=== PATIENT | female | born 1945 | race Caucasian/White ===

== ENCOUNTER 2019-01-12 16:20 | Inpatient (IN) ==
[2019-01-12] MEDS ORDERED: PANTOPRAZOLE 40 MG VIAL IV STA (17:12)
[2019-01-12] MEDS ORDERED: ONDANSETRON 4 MG/2 ML VIAL IV STA (17:12)
[2019-01-12] MEDS ORDERED: METOCLOPRAMIDE 10 MG/2 ML VIAL IV STA (17:12)
[2019-01-12 17:36] LABS: Basophils % 0.5 % (0.0-0.8); Eosinophils # 0.2 10*3/uL (0.0-0.87); Eosinophils % 2.2 % (0.00-10.9); Hematocrit 45.9 VOL% (35.7-47.0); Hemoglobin 14.7 GM/DL (12.0-16.0); Immature Granulocytes % 0.4 %; Immature Granulocytes Absolute 0.03 #; Lymphocytes # 1.9 10*3/uL (1.4-4.0); Lymphocytes % 23.2 % (21.3-54.2); Mean Corpuscular Hemoglobin 31 PG (27-34); Mean Corpuscular Volume 95.2 FL (87-102); Mean Platelet Volume 11.3 FL (9.6-12.0); Monocytes # 0.6 10*3/uL (0.11-0.8); Monocytes % 6.8 % (1.7-12.7); Neutrophils # 5.6 10*3/uL (1.4-7.4); Neutrophils % 66.9 % (38.7-73.9); Platelet Count 186 T/CUMM (130-400); Red Blood Count 4.82 MC/CUMM (3.8-5.5); Red Cell Distribution Width 13.9 % (9.3-17.3); White Blood Count 8.4 T/CUMM (4-12)
[2019-01-12 17:53] LABS: INR 1.1; PT Patient Result 11.7 SECS; Partial Thromboplastin Time 26.7 SECS (0-40)
[2019-01-12 18:03] LABS: Alanine Aminotransferase 41 U/L (13-56); Albumin 3.7 G/DL (3.4-5.0); Alkaline Phosphatase 122 U/L (45-117); Aspartate Amino Transferase 35 U/L (0-37); Blood Urea Nitrogen 14 MG/DL (7-18); Glucose 110 MG/DL (74-106); Osmolality,Calculated 278.5 MOS/KG (273-304); Potassium 3.7 MMOL/L (3.5-5.1); Sodium 139 MMOL/L (136-145); Total Protein 7.5 G/DL (6.4-8.3); Troponin I < 0.015 NG/ML (0.00-0.045)
[2019-01-12] MEDS ORDERED: FUROSEMIDE 40 MG/4 ML VIAL IV STA (18:29)
[2019-01-12] MEDS ORDERED: ALBUTEROL/IPRATROPIUM 3 ML NEB RESP TX STA (18:29)
[2019-01-12 18:46] LABS: Apearance,Urine Slightly Hazy (Clear); Bilirubin,Urine Negative (Negative); Blood, Urine Small mg/dL (Negative); Glucose,Urine (UA) Negative (Negative); Hyaline Casts,Urine 3 /LPF (0-3); Ketones,Urine Negative (Negative); Mucus,Urine Occasional /LPF (Occasional); Nitrite,Urine Negative (Negative); Protein,Urine 30 MG/DL; RBC,Urine 3 /HPF (0-4); Squamous Epithelial Cell,Urine Occasional /HPF (0-10); Urine Color Yellow (Yellow); Urine Specific Gravity 1.017 (1.001-1.035); WBC,Urine 6 /HPF (0-6)
[2019-01-12] MEDS ORDERED: DOCUSATE SODIUM 100 MG CAPSULE PO PRN (19:22)
[2019-01-12] MEDS ORDERED: NITROGLYCERIN SL 0.4 MG TABLET SL PRN (20:33)
[2019-01-12] MEDS: CARVEDILOL 3.125 MG TABLET PO SCH (23:14)
[2019-01-12] MEDS: POTASSIUM CHLORIDE 20 MEQ TABLET PO SCH (23:14)
[2019-01-12] MEDS: APIXABAN 5 MG TABLET PO SCH (23:15)
[2019-01-12] MEDS: cefTRIAXone 2,000 MG in SYRINGE 1 EACH IV SCH (23:15)
[2019-01-12] MEDS: SOTALOL 80 MG TABLET PO SCH (23:15)
[2019-01-12 23:18] LABS: Troponin I < 0.015 NG/ML (0.00-0.045)
[2019-01-12] MEDS: DIGOXIN 0.125 MG TABLET PO SCH (23:24)
[2019-01-13 02:54] LABS: Basophils % 0.6 % (0.0-0.8); Eosinophils # 0.2 10*3/uL (0.0-0.87); Eosinophils % 2.6 % (0.00-10.9); Hemoglobin 12.7 GM/DL (12.0-16.0); Immature Granulocytes % 0.3 %; Immature Granulocytes Absolute 0.02 #; Lymphocytes % 27.9 % (21.3-54.2); Mean Corpuscular HGB Conc 32.6 GM/DL (32-36); Mean Corpuscular Hemoglobin 31 PG (27-34); Mean Platelet Volume 10.9 FL (9.6-12.0); Monocytes # 0.6 10*3/uL (0.11-0.8); Monocytes % 8.5 % (1.7-12.7); Neutrophils # 4.2 10*3/uL (1.4-7.4); Neutrophils % 60.1 % (38.7-73.9); Platelet Count 156 T/CUMM (130-400); Red Blood Count 4.15 MC/CUMM (3.8-5.5); Red Cell Distribution Width 13.8 % (9.3-17.3)
[2019-01-13 03:20] LABS: Troponin I 0.018 NG/ML (0.00-0.045)
[2019-01-13 04:01] LABS: Thyroid Stimulating Hormone 4.46 uIU/ml (0.358-3.74)
[2019-01-13] MEDS ORDERED: FUROSEMIDE 40 MG/4 ML VIAL IV ONE (05:23)
[2019-01-13] MEDS ORDERED: ALBUTEROL/IPRATROPIUM 3 ML NEB RESP TX ONE (05:23)
[2019-01-13] MEDS ORDERED: ALBUTEROL 2.5 MG/3 ML NEB RESP TX ONE (05:24)
[2019-01-13] MEDS: DOXYCYCLINE HYCLATE 100 MG CAPSULE PO SCH ×2 (08:56→21:52)
[2019-01-13] MEDS: SOTALOL 80 MG TABLET PO SCH ×2 (08:56→21:53)
[2019-01-13] MEDS: LOSARTAN 25 MG TABLET PO SCH (08:57)
[2019-01-13] MEDS: CARVEDILOL 3.125 MG TABLET PO SCH ×2 (08:57→21:53)
[2019-01-13] MEDS: SPIRONOLACTONE 25 MG TABLET PO SCH (08:57)
[2019-01-13] MEDS: ASPIRIN EC 81 MG TABLET PO SCH (08:57)
[2019-01-13] MEDS: APIXABAN 5 MG TABLET PO SCH ×2 (08:57→21:53)
[2019-01-13] MEDS: FUROSEMIDE 40 MG/4 ML VIAL IV SCH (08:57)
[2019-01-13] MEDS: POTASSIUM CHLORIDE 20 MEQ TABLET PO SCH ×2 (08:57→21:52)
[2019-01-13] MEDS: FLUTICASONE 50 MCG NASAL SPRAY 16 GM BOTTLE BOTH NARES SCH (09:06)
[2019-01-13] MEDS: cefTRIAXone 2,000 MG in SYRINGE 1 EACH IV SCH (23:42)
[2019-01-14 04:29] LABS: Basophils % 0.3 % (0.0-0.8); Eosinophils # 0.4 10*3/uL (0.0-0.87); Eosinophils % 5.4 % (0.00-10.9); Hematocrit 40.3 VOL% (35.7-47.0); Hemoglobin 13.1 GM/DL (12.0-16.0); Immature Granulocytes % 0.3 %; Immature Granulocytes Absolute 0.02 #; Lymphocytes # 2.4 10*3/uL (1.4-4.0); Lymphocytes % 35.9 % (21.3-54.2); Mean Corpuscular HGB Conc 32.5 GM/DL (32-36); Mean Corpuscular Hemoglobin 31 PG (27-34); Mean Corpuscular Volume 94.8 FL (87-102); Mean Platelet Volume 11.9 FL (9.6-12.0); Monocytes # 0.7 10*3/uL (0.11-0.8); Monocytes % 9.7 % (1.7-12.7); Neutrophils # 3.3 10*3/uL (1.4-7.4); Neutrophils % 48.4 % (38.7-73.9); Platelet Count 164 T/CUMM (130-400); Red Blood Count 4.25 MC/CUMM (3.8-5.5); Red Cell Distribution Width 13.7 % (9.3-17.3); White Blood Count 6.7 T/CUMM (4-12)
[2019-01-14 05:09] LABS: Calcium 9.5 MG/DL (8.5-10.1); Osmolality,Calculated 273.8 MOS/KG (273-304); Potassium 3.9 MMOL/L (3.5-5.1)
[2019-01-14 05:18] LABS: Free T4 (Free Thyroxine) 1.5 NG/DL (0.76-1.46); Thyroid Stimulating Hormone 1.82 uIU/ml (0.358-3.74)
[2019-01-14] MEDS: APIXABAN 5 MG TABLET PO SCH ×2 (09:04→20:41)
[2019-01-14] MEDS: DOXYCYCLINE HYCLATE 100 MG CAPSULE PO SCH ×2 (09:04→20:41)
[2019-01-14] MEDS: SOTALOL 80 MG TABLET PO SCH ×2 (09:04→20:41)
[2019-01-14] MEDS: ASPIRIN EC 81 MG TABLET PO SCH (09:05)
[2019-01-14] MEDS: FUROSEMIDE 40 MG/4 ML VIAL IV SCH (09:05)
[2019-01-14] MEDS: CARVEDILOL 3.125 MG TABLET PO SCH ×2 (09:05→20:41)
[2019-01-14] MEDS: POTASSIUM CHLORIDE 20 MEQ TABLET PO SCH ×2 (09:05→20:41)
[2019-01-14] MEDS: FLUTICASONE 50 MCG NASAL SPRAY 16 GM BOTTLE BOTH NARES SCH (09:05)
[2019-01-14] MEDS: LOSARTAN 25 MG TABLET PO SCH (09:05)
[2019-01-14] MEDS: SPIRONOLACTONE 25 MG TABLET PO SCH (09:05)
[2019-01-14] MEDS: cefTRIAXone 2,000 MG in SYRINGE 1 EACH IV SCH (22:38)
[2019-01-15 04:26] LABS: Basophils % 0.6 % (0.0-0.8); Eosinophils # 0.4 10*3/uL (0.0-0.87); Hemoglobin 13.6 GM/DL (12.0-16.0); Immature Granulocytes % 0.1 %; Immature Granulocytes Absolute 0.01 #; Lymphocytes # 2.5 10*3/uL (1.4-4.0); Lymphocytes % 36.5 % (21.3-54.2); Mean Corpuscular HGB Conc 32.4 GM/DL (32-36); Mean Corpuscular Hemoglobin 31 PG (27-34); Mean Corpuscular Volume 94.8 FL (87-102); Mean Platelet Volume 11.1 FL (9.6-12.0); Monocytes # 0.6 10*3/uL (0.11-0.8); Monocytes % 8.9 % (1.7-12.7); Neutrophils # 3.3 10*3/uL (1.4-7.4); Neutrophils % 47.9 % (38.7-73.9); Platelet Count 179 T/CUMM (130-400); Red Blood Count 4.43 MC/CUMM (3.8-5.5); Red Cell Distribution Width 13.5 % (9.3-17.3); White Blood Count 6.9 T/CUMM (4-12)
[2019-01-15 04:46] LABS: Calcium 10.3 MG/DL (8.5-10.1); Osmolality,Calculated 276.8 MOS/KG (273-304); Potassium 4.1 MMOL/L (3.5-5.1)
[2019-01-15] MEDS: SOTALOL 80 MG TABLET PO SCH ×2 (10:17→21:27)
[2019-01-15] MEDS: ASPIRIN EC 81 MG TABLET PO SCH (10:17)
[2019-01-15] MEDS: SPIRONOLACTONE 25 MG TABLET PO SCH (10:17)
[2019-01-15] MEDS: POTASSIUM CHLORIDE 20 MEQ TABLET PO SCH ×2 (10:18→21:27)
[2019-01-15] MEDS: LOSARTAN 25 MG TABLET PO SCH (10:18)
[2019-01-15] MEDS: APIXABAN 5 MG TABLET PO SCH ×2 (10:19→21:27)
[2019-01-15] MEDS: FLUTICASONE 50 MCG NASAL SPRAY 16 GM BOTTLE BOTH NARES SCH (10:19)
[2019-01-15] MEDS: CARVEDILOL 3.125 MG TABLET PO SCH ×2 (10:19→21:27)
[2019-01-15] MEDS: DOXYCYCLINE HYCLATE 100 MG CAPSULE PO SCH ×2 (10:19→21:27)
[2019-01-15] MEDS: FUROSEMIDE 40 MG/4 ML VIAL IV SCH (10:22)
[2019-01-15] MEDS: DIGOXIN 0.125 MG TABLET PO SCH (14:21)
[2019-01-15] MEDS: cefTRIAXone 2,000 MG in SYRINGE 1 EACH IV SCH (23:19)
[2019-01-16 03:38] LABS: Basophils % 0.6 % (0.0-0.8); Eosinophils # 0.4 10*3/uL (0.0-0.87); Hematocrit 45.1 VOL% (35.7-47.0); Hemoglobin 14.4 GM/DL (12.0-16.0); Immature Granulocytes % 0.1 %; Immature Granulocytes Absolute 0.01 #; Lymphocytes # 2.4 10*3/uL (1.4-4.0); Lymphocytes % 35.5 % (21.3-54.2); Mean Corpuscular HGB Conc 31.9 GM/DL (32-36); Mean Corpuscular Hemoglobin 30 PG (27-34); Mean Corpuscular Volume 94.4 FL (87-102); Mean Platelet Volume 11.4 FL (9.6-12.0); Monocytes # 0.6 10*3/uL (0.11-0.8); Monocytes % 9.1 % (1.7-12.7); Neutrophils # 3.3 10*3/uL (1.4-7.4); Neutrophils % 48.7 % (38.7-73.9); Platelet Count 194 T/CUMM (130-400); Red Blood Count 4.78 MC/CUMM (3.8-5.5); Red Cell Distribution Width 13.4 % (9.3-17.3); White Blood Count 6.8 T/CUMM (4-12)
[2019-01-16 04:09] LABS: Calcium 10.7 MG/DL (8.5-10.1); Osmolality,Calculated 276.8 MOS/KG (273-304); Potassium 4.5 MMOL/L (3.5-5.1)
[2019-01-16] MEDS ORDERED: FUROSEMIDE 40 MG TABLET PO SCH (09:00)
[2019-01-16] MEDS ORDERED: MAGNESIUM CITRATE 300 ML BOTTLE PO ONE (09:22)
[2019-01-16] MEDS: APIXABAN 5 MG TABLET PO SCH (09:32)
[2019-01-16] MEDS: POTASSIUM CHLORIDE 20 MEQ TABLET PO SCH (09:32)
[2019-01-16] MEDS: ASPIRIN EC 81 MG TABLET PO SCH (09:32)
[2019-01-16] MEDS: CARVEDILOL 3.125 MG TABLET PO SCH (09:32)
[2019-01-16] MEDS: LOSARTAN 25 MG TABLET PO SCH (09:32)
[2019-01-16] MEDS: SOTALOL 80 MG TABLET PO SCH (09:32)
[2019-01-16] MEDS: SPIRONOLACTONE 25 MG TABLET PO SCH (09:33)
[2019-01-16] MEDS: FLUTICASONE 50 MCG NASAL SPRAY 16 GM BOTTLE BOTH NARES SCH (09:33)
[2019-01-16] MEDS: DOXYCYCLINE HYCLATE 100 MG CAPSULE PO SCH (09:39)
[2019-01-16 12:31] VITALS: BP 114/65
== END 2019-01-16 15:02 | disposition home or self-care (01) | DRG 291 ==
LOC: N.ED 16:20 → N.EDINP 19:22 → SUATTDRO 19:22 → N.TELES 22:20
PROVIDERS: ADMIT Internal Medicine; ATTEND Internal Medicine

== ENCOUNTER 2019-01-28 14:27 | Observation (INO) ==
[2019-01-28] MEDS ORDERED: ASPIRIN 325 MG TABLET PO STA (15:06)
[2019-01-28 15:21] LABS: Basophils % 0.4 % (0.0-0.8); Eosinophils # 0.1 10*3/uL (0.0-0.87); Hematocrit 47.9 VOL% (35.7-47.0); Hemoglobin 15.3 GM/DL (12.0-16.0); Immature Granulocytes % 0.3 %; Immature Granulocytes Absolute 0.02 #; Lymphocytes % 28.1 % (21.3-54.2); Mean Corpuscular HGB Conc 31.9 GM/DL (32-36); Mean Corpuscular Hemoglobin 30 PG (27-34); Mean Corpuscular Volume 93.9 FL (87-102); Mean Platelet Volume 10.6 FL (9.6-12.0); Monocytes # 0.5 10*3/uL (0.11-0.8); Monocytes % 7.7 % (1.7-12.7); Neutrophils # 4.4 10*3/uL (1.4-7.4); Neutrophils % 62.5 % (38.7-73.9); Platelet Count 192 T/CUMM (130-400); Red Cell Distribution Width 13.5 % (9.3-17.3)
[2019-01-28 16:19] LABS: Calcium 10.6 MG/DL (8.5-10.1); Osmolality,Calculated 272.1 MOS/KG (273-304); Potassium 4.8 MMOL/L (3.5-5.1)
[2019-01-28] MEDS ORDERED: ONDANSETRON 4 MG/2 ML VIAL IV PRN (16:52)
[2019-01-28] MEDS ORDERED: PROMETHAZINE 25 MG/1 ML VIAL IM PRN (16:52)
[2019-01-28] MEDS ORDERED: ACETAMINOPHEN 325 MG TABLET PO PRN (16:52)
[2019-01-28] MEDS ORDERED: NITROGLYCERIN SL 0.4 MG TABLET SL PRN (16:56)
[2019-01-28] MEDS ORDERED: FUROSEMIDE 40 MG TABLET PO ONE (17:00)
[2019-01-28] MEDS ORDERED: SODIUM CHLORIDE 0.9% 500 ML IV STA (17:13)
[2019-01-28] MEDS ORDERED: PANTOPRAZOLE 40 MG VIAL IV ONE (17:18)
[2019-01-28] MEDS: SOTALOL 80 MG TABLET PO SCH (20:21)
[2019-01-28] MEDS: CARVEDILOL 3.125 MG TABLET PO SCH (20:22)
[2019-01-28] MEDS: APIXABAN 5 MG TABLET PO SCH (20:22)
[2019-01-28] MEDS: POTASSIUM CHLORIDE 20 MEQ TABLET PO SCH (20:22)
[2019-01-29 04:37] LABS: Basophils % 0.4 % (0.0-0.8); Eosinophils # 0.1 10*3/uL (0.0-0.87); Eosinophils % 1.8 % (0.00-10.9); Hematocrit 47.6 VOL% (35.7-47.0); Hemoglobin 15.3 GM/DL (12.0-16.0); Immature Granulocytes % 0.3 %; Immature Granulocytes Absolute 0.02 #; Lymphocytes % 43.9 % (21.3-54.2); Mean Corpuscular HGB Conc 32.1 GM/DL (32-36); Mean Corpuscular Hemoglobin 31 PG (27-34); Mean Corpuscular Volume 94.8 FL (87-102); Mean Platelet Volume 11.2 FL (9.6-12.0); Monocytes # 0.5 10*3/uL (0.11-0.8); Monocytes % 7.7 % (1.7-12.7); Neutrophils # 3.1 10*3/uL (1.4-7.4); Neutrophils % 45.9 % (38.7-73.9); Platelet Count 202 T/CUMM (130-400); Red Blood Count 5.02 MC/CUMM (3.8-5.5); Red Cell Distribution Width 13.5 % (9.3-17.3); White Blood Count 6.8 T/CUMM (4-12)
[2019-01-29 05:12] LABS: Albumin 3.3 G/DL (3.4-5.0); Calcium 10.1 MG/DL (8.5-10.1); Osmolality,Calculated 275.8 MOS/KG (273-304); Potassium 4.3 MMOL/L (3.5-5.1); Risk Ratio 7.39; Thyroid Stimulating Hormone 2.63 uIU/ml (0.358-3.74); Total Protein 6.9 G/DL (6.4-8.3); VLDL CHOLESTEROL 47.6 MG/DL
[2019-01-29 06:58] LABS: Apearance,Urine CLEAR (Clear); Bacteria,Urine Occasional /HPF (Few); Bilirubin,Urine Negative (Negative); Blood, Urine Small mg/dL (Negative); Glucose,Urine (UA) Negative (Negative); Hyaline Casts,Urine 101 /LPF (0-3); Ketones,Urine Negative (Negative); Mucus,Urine Occasional /LPF (Occasional); Nitrite,Urine Negative (Negative); Protein,Urine Negative; RBC,Urine 2 /HPF (0-4); Squamous Epithelial Cell,Urine Occasional /HPF (0-10); Urine Color Yellow (Yellow); Urine Specific Gravity 1.011 (1.001-1.035); Urine Urobilinogen < 2.0 EU/DL (0.2-1.0); WBC,Urine 12 /HPF (0-6)
[2019-01-29] MEDS ORDERED: PANTOPRAZOLE 40 MG TABLET PO SCH (09:00)
[2019-01-29] MEDS ORDERED: MAGNESIUM SULF RIDER 2 GM in PREMIX 1 EACH IV PRN (09:34)
[2019-01-29] MEDS ORDERED: POTASSIUM CHLORIDE RIDER 10 MEQ in PREMIX 1 EACH IV PRN (09:34)
[2019-01-29] MEDS: SOTALOL 80 MG TABLET PO SCH ×2 (10:02→21:43)
[2019-01-29] MEDS: FUROSEMIDE 40 MG TABLET PO SCH (10:02)
[2019-01-29] MEDS: SPIRONOLACTONE 25 MG TABLET PO SCH (10:02)
[2019-01-29] MEDS: POTASSIUM CHLORIDE 20 MEQ TABLET PO SCH ×2 (10:03→21:43)
[2019-01-29] MEDS: CARVEDILOL 3.125 MG TABLET PO SCH ×2 (10:03→21:43)
[2019-01-29] MEDS: ASPIRIN EC 81 MG TABLET PO SCH (10:03)
[2019-01-29] MEDS: FLUTICASONE 50 MCG NASAL SPRAY 16 GM BOTTLE BOTH NARES SCH (10:04)
[2019-01-29] MEDS: APIXABAN 5 MG TABLET PO SCH (10:19)
[2019-01-29] MEDS: DIGOXIN 0.125 MG TABLET PO SCH (12:57)
[2019-01-29] MEDS: NITROFURANTOIN MACRO/MONO 100 MG CAPSULE PO SCH (21:43)
[2019-01-29] MEDS: ROSUVASTATIN 20 MG TABLET PO SCH (21:43)
[2019-01-30 04:54] LABS: Basophils % 0.3 % (0.0-0.8); Eosinophils # 0.1 10*3/uL (0.0-0.87); Eosinophils % 1.6 % (0.00-10.9); Hematocrit 46.6 VOL% (35.7-47.0); Hemoglobin 15.1 GM/DL (12.0-16.0); Immature Granulocytes % 0.2 %; Immature Granulocytes Absolute 0.01 #; Lymphocytes # 3.1 10*3/uL (1.4-4.0); Lymphocytes % 48.7 % (21.3-54.2); Mean Corpuscular HGB Conc 32.4 GM/DL (32-36); Mean Corpuscular Hemoglobin 31 PG (27-34); Mean Corpuscular Volume 94.3 FL (87-102); Mean Platelet Volume 11.1 FL (9.6-12.0); Monocytes # 0.4 10*3/uL (0.11-0.8); Monocytes % 6.9 % (1.7-12.7); Neutrophils # 2.7 10*3/uL (1.4-7.4); Neutrophils % 42.3 % (38.7-73.9); Platelet Count 182 T/CUMM (130-400); Red Blood Count 4.94 MC/CUMM (3.8-5.5); Red Cell Distribution Width 13.6 % (9.3-17.3); White Blood Count 6.4 T/CUMM (4-12)
[2019-01-30 05:08] LABS: Calcium 10.3 MG/DL (8.5-10.1); Osmolality,Calculated 278.8 MOS/KG (273-304); Potassium 4.3 MMOL/L (3.5-5.1)
[2019-01-30] MEDS: ASPIRIN EC 81 MG TABLET PO SCH (08:46)
[2019-01-30] MEDS: CARVEDILOL 3.125 MG TABLET PO SCH ×2 (08:46→20:41)
[2019-01-30] MEDS: SOTALOL 80 MG TABLET PO SCH ×2 (08:47→20:40)
[2019-01-30] MEDS: POTASSIUM CHLORIDE 20 MEQ TABLET PO SCH ×2 (08:47→20:41)
[2019-01-30] MEDS ORDERED: diphenhydrAMINE CAP 25 MG CAPSULE PO ONE (09:00)
[2019-01-30] MEDS ORDERED: DIAZEPAM 5 MG TABLET PO ONE (09:00)
[2019-01-30] MEDS ORDERED: HEPARIN/NACL 0.9% 2 UNITS/ML 1,000 ML IV ONE (09:20)
[2019-01-30] MEDS ORDERED: LIDOCAINE 1%/EPI INJ 20 ML VIAL ONE (09:20)
[2019-01-30] MEDS ORDERED: MIDAZOLAM 2 MG/2 ML VIAL ONE (09:36)
[2019-01-30] MEDS ORDERED: fentaNYL 100 MCG/2 ML VIAL ONE (09:36)
[2019-01-30] MEDS ORDERED: SODIUM CHLORIDE 0.9% 1,000 ML IV SCH (10:30)
[2019-01-30] MEDS: NITROFURANTOIN MACRO/MONO 100 MG CAPSULE PO SCH ×2 (13:37→20:41)
[2019-01-30] MEDS: FUROSEMIDE 40 MG TABLET PO SCH (13:39)
[2019-01-30] MEDS: SPIRONOLACTONE 25 MG TABLET PO SCH (13:45)
[2019-01-30] MEDS: FLUTICASONE 50 MCG NASAL SPRAY 16 GM BOTTLE BOTH NARES SCH (13:45)
[2019-01-30] MEDS: ROSUVASTATIN 20 MG TABLET PO SCH (20:41)
[2019-01-31 05:14] LABS: Basophils % 0.3 % (0.0-0.8); Eosinophils # 0.1 10*3/uL (0.0-0.87); Eosinophils % 1.5 % (0.00-10.9); Hematocrit 43.6 VOL% (35.7-47.0); Hemoglobin 13.8 GM/DL (12.0-16.0); Immature Granulocytes % 0.3 %; Immature Granulocytes Absolute 0.02 #; Lymphocytes # 2.5 10*3/uL (1.4-4.0); Lymphocytes % 34.7 % (21.3-54.2); Mean Corpuscular HGB Conc 31.7 GM/DL (32-36); Mean Corpuscular Hemoglobin 31 PG (27-34); Mean Corpuscular Volume 96.2 FL (87-102); Mean Platelet Volume 11.2 FL (9.6-12.0); Monocytes # 0.6 10*3/uL (0.11-0.8); Monocytes % 8.6 % (1.7-12.7); Neutrophils # 3.9 10*3/uL (1.4-7.4); Neutrophils % 54.6 % (38.7-73.9); Platelet Count 166 T/CUMM (130-400); Red Blood Count 4.53 MC/CUMM (3.8-5.5); Red Cell Distribution Width 13.7 % (9.3-17.3); White Blood Count 7.2 T/CUMM (4-12)
[2019-01-31 05:38] LABS: Calcium 9.3 MG/DL (8.5-10.1); Osmolality,Calculated 283.4 MOS/KG (273-304)
[2019-01-31 05:39] LABS: Calcium 9.5 MG/DL (8.5-10.1); Osmolality,Calculated 282.4 MOS/KG (273-304)
[2019-01-31] MEDS: SOTALOL 80 MG TABLET PO SCH (08:40)
[2019-01-31] MEDS: ASPIRIN EC 81 MG TABLET PO SCH (08:41)
[2019-01-31] MEDS: SPIRONOLACTONE 25 MG TABLET PO SCH (08:41)
[2019-01-31] MEDS: POTASSIUM CHLORIDE 20 MEQ TABLET PO SCH (08:41)
[2019-01-31] MEDS: CARVEDILOL 3.125 MG TABLET PO SCH (08:41)
[2019-01-31] MEDS: NITROFURANTOIN MACRO/MONO 100 MG CAPSULE PO SCH (08:41)
[2019-01-31] MEDS: FUROSEMIDE 40 MG TABLET PO SCH (08:41)
[2019-01-31] MEDS: FLUTICASONE 50 MCG NASAL SPRAY 16 GM BOTTLE BOTH NARES SCH (08:43)
[2019-01-31] MEDS ORDERED: APIXABAN 5 MG TABLET PO SCH (10:30)
[2019-01-31 11:41] VITALS: BP 98/45
[2019-01-31] MEDS: DIGOXIN 0.125 MG TABLET PO SCH (13:09)
== END 2019-01-31 13:05 | disposition home or self-care (01) ==
LOC: EDBD → EDUNIT# → N.EDINP 14:27 → N.ED 14:27 → SUATTDRO 16:52 → N.EDINP 19:07 → N.4E 20:13 → N.TELEN 01-29 14:16
PROVIDERS: ADMIT Internal Medicine; ATTEND Internal Medicine
PROC: CLCCHCL (ICD-10-PCS; 2019-01-30 10:45)